=== PATIENT | female | born 1955 | race Two or more races ===

== ENCOUNTER → 2017-12-30 | Emergency (ER) | payer OTHER ==
[~2017-12-30] VITALS: Ht 152.4 cm; Wt 113.4 kg
== END | disposition home or self-care (01) ==
LOC: ER 19:17
DX: S92.492A Other fracture of left great toe, initial encounter for closed fracture (principal); S13.8XXA Sprain of joints and ligaments of other parts of neck, initial encounter; W01.0XXA Fall on same level from slipping, tripping and stumbling without subsequent striking against object, initial encounter; Y93.89 Activity, other specified; Y92.098 Other place in other non-institutional residence as the place of occurrence of the external cause; Y99.8 Other external cause status